=== PATIENT | male | born 2000 | race Caucasian/White ===

== ENCOUNTER 2023-06-19 15:45 | Emergency (ER) | payer SELFPAY ==
[~2023-06-19] VITALS: Ht 172.7 cm; Wt 129.3 kg
[2023-06-19 16:01] VITALS: BP 140/93; PULSE 81; RESP 20; TEMP 98.1; O2SAT 99
[2023-06-19] MEDS ORDERED: HYDR-2734 TP (17:26)
[2023-06-19 17:34] VITALS: BP 144/83; PULSE 81; RESP 14; TEMP 98.1; O2SAT 97
== END 2023-06-19 17:33 | disposition home or self-care (01) ==
LOC: MED 15:45
DX: K64.8 Other hemorrhoids (principal); Z79.899 Other long term (current) drug therapy
CPT/HCPCS: 99283